=== PATIENT | male | born 1995 | race Caucasian/White ===

== ENCOUNTER 2021-01-24 03:09 | Emergency (ER) | payer SELFPAY ==
[~2021-01-24] VITALS: Ht 177.8 cm; Wt 68.0 kg
[2021-01-24 03:09] VITALS: BP_SYST 147
[2021-01-24 03:25] VITALS: BP_SYST 147
== END 2021-01-24 03:25 ==
LOC: SED 03:09
DX: F10.129 Alcohol abuse with intoxication, unspecified (principal); Y90.9 Presence of alcohol in blood, level not specified; V49.49XA Driver injured in collision with other motor vehicles in traffic accident, initial encounter; Y93.89 Activity, other specified; Y92.89 Other specified places as the place of occurrence of the external cause; Y99.8 Other external cause status
CPT/HCPCS: 99283